=== PATIENT | female | born 1970 ===

== ENCOUNTER 2018-01-26 22:11 | Emergency (ER) | payer BC, OTHER ==
[2018-01-26 22:12] VITALS: BMI 35.3
[2018-01-26] MEDS ORDERED: Lidocaine 5% Patch TD ONE (23:10)
[2018-01-26] MEDS: Lidocaine 5% Patch TD STA (23:16)
--- NOTE | 2018-01-26 23:19 | ED PDOC ---
Upper Extremity Pain/Injury Time Seen by Provider: 01/26/18 22:31 Chief Complaint (Nursing): Upper Extremity Problem/Injury Chief Complaint (Provider): Upper Extremity Problem/Injury History Per: Patient History/Exam Limitations: no limitations Onset/Duration Of Symptoms: Days (x 1) Current Symptoms Are (Timing): Still Present Quality: "Pain" Exacerbating Factor(s): Movement Additional Complaint(s): 47 year old female with a history of high cholesterol, DM, chronic back pain and a herniated disc in her neck, presents to the ED complaining of left shoulder pain since this morning. Patient reports waking up with pain that is localized at the lateral shoulder and radiates to right above her elbow. It is worse with any movement of her upper arm and forearm. 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 She admits to taking Oxycodone for her back pain regularly as well as taking a muscle relaxant with no relief of current symptoms. Denies numbness, tingling, weakness , trauma and injury. PMD: Dr. Raven Buck MD Past Medical History Reviewed: Historical Data, Nursing Documentation, Vital Signs Vital Signs: Last Vital Signs Temp 97.1 F L 01/26/18 22:21 Pulse 96 H 01/26/18 22:21 Resp 18 01/26/18 22:21 BP 144/90 01/26/18 22:21 Pulse Ox 100 01/26/18 22:21 - Medical History PMH: Anxiety, Back Problems, Diabetes, Gastritis (Takes zantac prn), Sleep Apnea (uses cpap with oxygen at night) - Surgical History Surgical History: Cholecystectomy, Tonsillectomy Other surgeries: total hysterectomy - Family History Family History: States: Diabetes, Hypertension - Social History Current smoker - smoking cessation education provided: Yes Alcohol: None Drugs: Denies - Immunization History Hx Tetanus Toxoid Vaccination: No Hx Influenza Vaccination: No Hx Pneumococcal Vaccination: No - Home Medications Home Medications: Ambulatory Orders Medication Instructions Recorded Motrin 600 mg PO Q8 07/30/14 Percocet 325 mg-5 mg 1 tab PO Q4 07/30/14 Enoxaparin [Lovenox] 40 mg SC DAILY #0 syr 08/02/14 Famotidine [Pepcid] 20 mg PO BID #0 tab 08/02/14 Moxifloxacin [Avelox] 400 mg PO DAILY #5 tab 08/02/14 Oxycodone HCl/Acetaminophen 1 tab PO Q6 PRN #12 tab 08/27/15 [Percocet 325 mg-5 mg] Amoxicillin 500 mg PO BID #14 cap 04/13/16 Naproxen 500 mg PO BID #30 tab 01/27/18 - Allergies Allergies/Adverse Reactions: Allergies Allergy/AdvReac Type Severity Reaction Status Date / Time Iodinated Contrast- Oral and Allergy RASH Verified 04/13/16 16:25 IV Dye [Iodinated Contrast Media - IV Dye] Review of Systems ROS Statement: Except As Marked, All Systems Reviewed And Found Negative Musculoskeletal: Positive for: Neck Pain (chronic), Shoulder Pain (left; radiates down to elbow), Back Pain (chronic) Physical Exam - Reviewed Nursing Documentation Reviewed: Yes Vital Signs Reviewed: Yes - Physical Exam Appears: Positive for: Uncomfortable, In Acute Distress (painful) Head Exam: Positive for: ATRAUMATIC, NORMOCEPHALIC Skin: Positive for: Warm (dark red lesions to lateral shoulder she reports is from chronic acne), Dry Eye Exam: Positive for: Normal appearance, EOMI, PERRL Extremity: Positive for: Tenderness (to palpation in lateral left upper arm with some spasm at deltoid), Capillary Refill (<2 in fingers), Other (left shoulder is held in adduction and internal rotation;5/5 strength in all nerve distribution of left hand; 5/5 strength in wrist flexion and extension; Light touch is intact; Strong radial pulse). Negative for: Normal ROM ((+) Passive and active ROM at elbow and shoulder elicits exquisite pain), Deformity, Swelling - ECG O2 Sat by Pulse Oximetry: 100 (RA) Pulse Ox Interpretation: Normal Medical Decision Making Medical Decision Making: Time: 22:31 Impression: shoulder pain Differential diagnoses include but are not limited to: shoulder tendonitis, rotator cuff injury, shoulder sprain, arthritis, degenerative joint disease Initial Plan: --Lidocaine 5% 1 ea TD --Toradol 30 mg IM --Tylenol 975 mg PO --Valium 5 mg PO --Left shoulder x-ray Time: 2356 --Pt continues to have exquisite pain despite medications. LEFT shoulder xray: questionable fracture, poor views due to patient's inability to tolerate movement to provide appropriate views Upper extremity CT and IM Morphine ordered. Transfer of care to Dr Ellsworth pending CT to r/o fx. Scribe Attestation: Documented by Ebony Pierre, acting as a scribe for Sarah Yadav MD Provider Scribe Attestation: All medical record entries made by the Scribe were at my direction and personally dictated by me. I have reviewed the chart and agree that the record accurately reflects my personal performance of the history, physical exam, medical decision making, and the department course for this patient. I have also personally directed, reviewed, and agree with the discharge instructions and disposition. Disposition - Clinical Impression Clinical Impression: Shoulder pain, acute - Patient ED Disposition Is Patient to be Admitted: Transfer of Care - Disposition Disposition: Transfer of Care Disposition Time: 00:00 Condition: FAIR Prescriptions: Naproxen 500 mg PO BID #30 tab Patient Signed Over To: Zee Ellsworth Handoff Comments: pending CT
--- NOTE | 2018-01-27 00:20 | ED PDOC ---
- ECG O2 Sat by Pulse Oximetry: 100 (RA) Pulse Ox Interpretation: Normal - Progress Re-evaluation Time: :25 Condition: Re-examined, Improved Medical Decision Making Medical Decision Making: Time: 00:00 --transfer of care endorsed to me pending CT of upper extremity. Time: 00:55 CT FINDINGS: Bones/joints: Small bone fragment along the posterior rim of the left glenoid concerning for an acute fracture. No dislocation. Soft tissues: Unremarkable. IMPRESSION: Small bone fragment along the posterior rim of the left glenoid concerning for an acute fracture. Scribe Attestation: Documented by Ebony Pierre, acting as a scribe for Zee Ellsworth MD Provider Scribe Attestation: All medical record entries made by the Scribe were at my direction and personally dictated by me. I have reviewed the chart and agree that the record accurately reflects my personal performance of the history, physical exam, medical decision making, and the department course for this patient. I have also personally directed, reviewed, and agree with the discharge instructions and disposition. Disposition Doctor Will See Patient In The: Office Counseled Patient/Family Regarding: Studies Performed, Diagnosis, Need For Followup - Clinical Impression Clinical Impression: Shoulder pain, acute, Glenoid labrum tear - POA Present On Arrival: None - Disposition Referrals: Mino Martinez III, MD [Staff Provider] - Disposition: Routine/Home Disposition Time: :25 Condition: GOOD Additional Instructions: Take your medications as instructed. Follow up with your PCP, pain management, and orthopedist in 2-3 days. Instructions: Shoulder Labral Tear (DC)
[2018-01-27 02:23] VITALS: BP 123/78; PULSE 82; RESP 16; TEMP 98
--- NOTE | 2018-01-27 07:54 | RAD ---
PROCEDURE: Radiographs of the Left Shoulder HISTORY: LEFT shoulder pain COMPARISON: No prior. FINDINGS: BONES: Normal. No fractureMacro rad bone. JOINTS: Normal. Glenohumeral and acromioclavicular joints preserved. No osteoarthritis. SOFT TISSUES: Questionable soft tissue lesion overlying the deltoid region. OTHER FINDINGS: None. IMPRESSION: No acute fracture dislocation appreciated. Questionable soft tissue lesion overlying the deltoid region. Clinically correlate further.
--- NOTE | 2018-01-27 09:00 | CT ---
PROCEDURE: CT LEFT SHOULDER WITHOUT CONTRAST HISTORY: LEFT shoulder r/o fracture COMPARISON: Left shoulder radiographs 01/26/2018. TECHNIQUE: A volumetric CT acquisition was performed through the left shoulder without intravenous contrast as requested. Reformatted datasets provided using multiple algorithms in sagittal, coronal and axial planes. FINDINGS: A chip or avulsion fracture is suspected posterior to the glenoid rim potentially reflecting a type of [place] lesion. No subluxation or dislocation. No humeral fractures appreciated with the acromioclavicular joint and acromion appearing intact overall. The scapula is otherwise unremarkable swells local soft tissues. Incidental capture through left lung apex is unremarkable as well. The visualized upper left ribs appear intact as well. IMPRESSION: Chip or avulsion fracture at the posterior rim of the glenoid process is in question versus heterotopic calcification. The former is favored. MRI may be useful for further characterization. No subluxation or dislocation. No left humeral head fracture appreciated.
[2018-01-29 15:28] VITALS: O2SAT 100
== END 2018-01-27 01:45 | disposition home or self-care (01) ==
LOC: SUPCPDRO 22:11 → H.ER 22:11
DX: S43.432A Superior glenoid labrum lesion of left shoulder, initial encounter (principal); X50.9XXA Other and unspecified overexertion or strenuous movements or postures, initial encounter; Y92.89 Other specified places as the place of occurrence of the external cause; E11.9 Type 2 diabetes mellitus without complications; F41.9 Anxiety disorder, unspecified
CPT/HCPCS: 73030; 73200; 96372; 99285; J1885; J2270

== ENCOUNTER 2018-07-13 23:41 | Observation (INO) | payer BC, OTHER ==
[2018-07-13 23:41] VITALS: BMI 35.3
[2018-07-14 01:00] LABS: BASO % 0.3 % (0.0-2.0); EOS # 0.1 K/uL (0.0-0.7); EOS % 1.1 % (0.0-4.0); HEMOGLOBIN 13.1 g/dL (12.0-16.0); LYMPH % 28.6 % (20.0-40.0); MEAN CELL VOLUME 88.8 fl (81.0-99.0); MEAN CORPUSCULAR HEMOGLOBIN 29.7 pg (27.0-31.0); MEAN CORPUSCULAR HGB CONC 33.5 g/dL (33.0-37.0); MEAN PLATELET VOLUME 10.3 fl (7.2-11.7); MONO # 0.9 K/uL (0.0-0.8); MONO % 8.5 % (0.0-10.0); NEUT # 6.4 K/uL (1.8-7.0); NEUT % 61.5 % (50.0-75.0); NRBC % 0.2 % (0.0-0.0); RBC 4.39 Mil/uL (3.80-5.20); RED CELL DISTRIBUTION WIDTH 14.7 % (11.5-14.5); WHITE BLOOD COUNT 10.4 K/uL (4.8-10.8)
[2018-07-14 01:02] LABS: PROTHROMBIN TIME 10.6 Seconds (9.8-13.1)
[2018-07-14 01:05] LABS: PARTIAL THROMBOPLASTIN TIME 33.3 Seconds (25.6-37.1)
[2018-07-14 01:06] LABS: BLOOD UREA NITROGEN 15 mg/dl (7-17); CALCIUM 9.6 mg/dL (8.4-10.2); GFR NON-AFRICAN AMERICAN > 60
--- NOTE | 2018-07-14 03:04 | ED PDOC ---
HPI: Chest Pain Time Seen by Provider: 07/14/18 00:00 Chief Complaint (Nursing): Chest Pain History Per: Patient History/Exam Limitations: no limitations Quality: Pressure Additional Complaint(s): Hx of DM presenting with chest pain since yesterday, occurs at rest, radiates to L arm, not associated with shortness of breath, sweats. Denies cough, fever. No leg swelling. States she cannot take ASA because she is having surgery on her back on Thursday. Past Medical History Reviewed: Historical Data, Nursing Documentation, Vital Signs Vital Signs: Last Vital Signs Temp 97.9 F 07/13/18 23:50 Pulse 98 H 07/13/18 23:50 Resp 16 07/13/18 23:50 BP 132/85 07/13/18 23:50 Pulse Ox 97 07/13/18 23:50 - Medical History PMH: Anxiety, Asthma, Back Problems, Diabetes, Gastritis (Takes zantac prn), Gall Bladder Disease, Hypercholesterolemia, Sleep Apnea (uses cpap with oxygen at night) - Surgical History Surgical History: Cholecystectomy, Tonsillectomy - Family History Family History: States: Diabetes, Hypertension - Immunization History Hx Tetanus Toxoid Vaccination: No Hx Influenza Vaccination: No Hx Pneumococcal Vaccination: No - Home Medications Home Medications: Ambulatory Orders Medication Instructions Recorded Gabapentin [Neurontin] 300 mg PO BID 07/14/18 Metformin HCl [Glucophage] 1,000 mg PO DAILY 07/14/18 Montelukast [Singulair] 10 mg PO DAILY 07/14/18 Naproxen [Naprosyn] 500 mg PO BID 07/14/18 busPIRone [Buspar] 10 mg PO BID 07/14/18 - Allergies Allergies/Adverse Reactions: Allergies Allergy/AdvReac Type Severity Reaction Status Date / Time Iodinated Contrast- Oral and Allergy RASH Verified 07/13/18 23:50 IV Dye [Iodinated Contrast Media - IV Dye] Review of Systems ROS Statement: Except As Marked, All Systems Reviewed And Found Negative Cardiovascular: Positive for: Chest Pain Physical Exam - Reviewed Nursing Documentation Reviewed: Yes Vital Signs Reviewed: Yes - Physical Exam Appears: Positive for: Well, Non-toxic, No Acute Distress Head Exam: Positive for: ATRAUMATIC, NORMAL INSPECTION, NORMOCEPHALIC Skin: Positive for: Normal Color, Warm, DRY Eye Exam: Positive for: EOMI, Normal appearance, PERRL ENT: Positive for: Normal ENT Inspection Neck: Positive for: Normal, Painless ROM Cardiovascular/Chest: Positive for: Regular Rate, Rhythm Respiratory: Positive for: CNT, Normal Breath Sounds Gastrointestinal/Abdominal: Positive for: Normal Exam, Soft. Negative for: Tenderness Back: Positive for: Normal Inspection Extremity: Positive for: Normal ROM Neurologic/Psych: Positive for: Alert, Oriented - Laboratory Results Result Diagrams: 07/14/18 00:21 07/14/18 00:21 - ECG ECG Rhythm: Positive for: Normal QRS, Normal ST Segment, Nonspecific Changes Interpretation Of Abn EKG: Q waves Rate: 79 O2 Sat by Pulse Oximetry: 97 Pulse Ox Interpretation: Normal Medical Decision Making Medical Decision MakinAM Patient with DM presenting with atypical chest pain --Comfortable appearance, stable vitals, nonfocal exam --Nonspecific changes on EKG --Will get labs, EKG, CXR --Concerned for possible ACS 300AM --Workup negative --Will place in OBS Tele for serial troponins and cardiac monitoring given age and risk factors Disposition - Clinical Impression Clinical Impression: Atypical chest pain - Disposition Disposition Time: 03:00 Condition: FAIR
[2018-07-14] MEDS ORDERED: Nitroglycerin 2% 15 INCH/30 GM TUBE TOP STA (03:14)
[2018-07-14] MEDS ORDERED: Nitroglycerin 2% Ointment Foilpak UD TOP ONE (03:16)
[2018-07-14] MEDS ORDERED: Nitroglycerin 2% Ointment Foilpak UD TOP STA (03:23)
--- NOTE | 2018-07-14 06:37 | CARD ---
APPROVED REPORT Date of service: 07/13/2018 EKG Measurement Heart [id number] <Conclusion> Normal sinus rhythm Normal Electrocardiogram
--- NOTE | 2018-07-14 08:22 | RAD ---
Date of service: 07/14/2018 HISTORY: cp COMPARISON: No prior. TECHNIQUE: Chest PA and lateral FINDINGS: LUNGS: Low-normal lung volumes. No consolidation or mass appreciated. PLEURA: No significant pleural effusion identified. No pneumothorax apparent. CARDIOVASCULAR: Probable mild cardiomegaly. Suspect mild pulmonary venous congestion OSSEOUS STRUCTURES: No significant abnormalities. VISUALIZED UPPER ABDOMEN: Normal. OTHER FINDINGS: Asymmetrically elevated right hemidiaphragm IMPRESSION: Mild cardiomegaly with mild pulmonary venous congestion
[2018-07-14] MEDS: Naproxen 500 MG TAB PO SCH ×2 (08:56→16:36)
[2018-07-14 09:12] LABS: HDL CHOLESTEROL 43 MG/DL (30-70)
[2018-07-14 09:24] LABS: LDL CHOLESTEROL 158 mg/dL (0-129)
--- NOTE | 2018-07-14 13:21 | CP.PCM.HP ---
History of Present Illness - History of Present Illness History of Present Illness: 48 yo female patient with PMHx of DM present to the ED c/o chest pain x2 today, patient describes pain occurs at rest, radiates to L arm, 6/10, not associated with shortness of breath or palpitations. She denies cough, fever/nausea/vo miting, orthopnea, diaphoresis. No leg swelling. No previous episodes. States she is having surgery on her back on Thursday. PMH: Anxiety, Asthma, Back Problems, Diabetes, Gastritis, Hypercholesterolemia, Sleep Apnea PSH: cholecystectomy, tonsilectomy Meds: see bellow FMH: DM and HTN in parents Allergies: Iodine SH: negtaive foe tobacco, etoh or ilict drugs use Present on Admission - Present on Admission Any Indicators Present on Admission: No Review of Systems - Review of Systems All systems: reviewed and no additional remarkable complaints except (HPI) Past Patient History - Infectious Disease Hx of Infectious Diseases: None - Past Medical History & Family History Past Medical History?: Yes - Past Social History Smoking Status: Current Some Days Smoker - CARDIAC Hx Hypercholesterolemia: Yes - PULMONARY Hx Asthma: Yes Hx Sleep Apnea: Yes (uses cpap with oxygen at night) - NEUROLOGICAL Hx Neurological Disorder: No - HEENT Other/Comment: wear reading eyeglasses - RENAL Hx Chronic Kidney Disease: No - ENDOCRINE/METABOLIC Hx Endocrine Disorders: Yes Hx Diabetes Mellitus Type 2: Yes - HEMATOLOGICAL/ONCOLOGICAL Hx Blood Disorders: No Hx AIDS: No Hx Human Immunodeficiency Virus (HIV): No - INTEGUMENTARY Hx Dermatological Problems: No - MUSCULOSKELETAL/RHEUMATOLOGICAL Hx Back Pain: Yes Hx Falls: Yes Hx Herniated Disk: Yes (Cervical and lumbar discs) - GASTROINTESTINAL Hx Gall Bladder Disease: Yes Hx Gastritis: Yes (Takes zantac prn) - GENITOURINARY/GYNECOLOGICAL Hx Genitourinary Disorders: Yes Hx Reproductive Disorders: Yes (heavy vaginal bleeding) - PSYCHIATRIC Hx Anxiety: Yes Hx Substance Use: No - SURGICAL HISTORY Hx Surgeries: Yes Hx Cholecystectomy: Yes Hx Hysterectomy: Yes Hx Tonsillectomy: Yes - ANESTHESIA Hx Anesthesia: Yes Hx Anesthesia Reactions: No Hx Malignant Hyperthermia: No Meds Allergies/Adverse Reactions: Allergies Allergy/AdvReac Type Severity Reaction Status Date / Time Iodinated Contrast- Oral and Allergy RASH Verified 07/13/18 23:50 IV Dye [Iodinated Contrast Media - IV Dye] Physical Exam - Constitutional Appears: No Acute Distress - Head Exam Head Exam: NORMAL INSPECTION - Eye Exam Eye Exam: EOMI, PERRL - Respiratory Exam Respiratory Exam: Clear to Auscultation Bilateral - Cardiovascular Exam Cardiovascular Exam: REGULAR RHYTHM, +S1, +S2. absent: Tachycardia - GI/Abdominal Exam GI & Abdominal Exam: Soft. absent: Distended, Tenderness - Extremities Exam Extremities exam: Negative for: calf tenderness, pedal edema - Neurological Exam Neurological exam: Alert, CN II-XII Intact, Oriented x3 - Skin Skin Exam: Dry, Warm Results - Vital Signs Recent Vital Signs: Last Vital Signs Temp 97.6 F 07/14/18 12:47 Pulse 70 07/14/18 12:47 Resp 18 07/14/18 12:47 BP 99/65 L 07/14/18 12:47 Pulse Ox 99 07/14/18 12:47 - Labs Result Diagrams: 07/14/18 00:21 07/14/18 00:21 Labs: Laboratory Results - last 24 hr 07/14/18 07/14/18 07/14/18 00:21 00:21 00:21 WBC 10.4 RBC 4.39 Hgb 13.1 Hct 39.0 MCV 88.8 MCH 29.7 MCHC 33.5 RDW 14.7 H Plt Count 205 MPV 10.3 Neut % (Auto) 61.5 Lymph % (Auto) 28.6 [place] % (Auto) 8.5 Eos % (Auto) 1.1 Baso % (Auto) 0.3 Neut # (Auto) 6.4 Lymph # (Auto) 3.0 [place] # (Auto) 0.9 H Eos # (Auto) 0.1 Baso # (Auto) 0.0 PT 10.6 INR 1.0 APTT 33.3 Sodium 141 Potassium 3.6 Chloride 103 Carbon Dioxide 28 Anion Gap 14 BUN 15 Creatinine 0.7 Est GFR ( Amer) > 60 Est GFR (Non-Af Amer) > 60 POC Glucose (mg/dL) Random Glucose 111 H Calcium 9.6 Troponin I < 0.0120 Triglycerides Cholesterol LDL Cholesterol Direct HDL Cholesterol 07/14/18 07/14/18 07/14/18 01:51 04:56 08:17 WBC RBC Hgb Hct MCV MCH MCHC RDW Plt Count MPV Neut % (Auto) Lymph % (Auto) [place] % (Auto) Eos % (Auto) Baso % (Auto) Neut # (Auto) Lymph # (Auto) [place] # (Auto) Eos # (Auto) Baso # (Auto) PT INR APTT Sodium Potassium Chloride Carbon Dioxide Anion Gap BUN Creatinine Est GFR ( Amer) Est GFR (Non-Af Amer) POC Glucose (mg/dL) 103 107 Random Glucose Calcium Troponin I < 0.0120 Triglycerides 79 Cholesterol 218 H LDL Cholesterol Direct 158 H HDL Cholesterol 43 07/14/18 11:22 WBC RBC Hgb Hct MCV MCH MCHC RDW Plt Count MPV Neut % (Auto) Lymph % (Auto) [place] % (Auto) Eos % (Auto) Baso % (Auto) Neut # (Auto) Lymph # (Auto) [place] # (Auto) Eos # (Auto) Baso # (Auto) PT INR APTT Sodium Potassium Chloride Carbon Dioxide Anion Gap BUN Creatinine Est GFR ( Amer) Est GFR (Non-Af Amer) POC Glucose (mg/dL) 120 H Random Glucose Calcium Troponin I Triglycerides Cholesterol LDL Cholesterol Direct HDL Cholesterol Assessment & Plan - Assessment and Plan (Free Text) Assessment: 48 yo female patient with PMHx of DM, HLD, anxiety and gastritis admitted for atypical chest pain r/o ACS vs MSK Plan: - Comfortable appearance, stable vitals - Nonspecific changes on EKG - troponins x3 negative - Hold ASA pt getting back surgery on Thursday - rest workup wnl - pending echo - CXR no active lung disease - continue home meds - will monitor Case seen and examined with Dr Blakely
[2018-07-14 20:38] VITALS: RESP 18
--- NOTE | 2018-07-14 20:50 | CARD ---
APPROVED REPORT Date of service: 07/14/2018 EXAM: Two-dimensional and M-mode echocardiogram with Doppler and color Doppler. Other Information Quality : GoodRhythm : NSR INDICATION Chest Pain 2D DIMENSIONS IVSd0.84 (0.7-1.1cm)LVDd4.35 (3.9-5.9cm) LVOT Diameter1.64 (1.8-2.4cm)PWd1.08 (0.7-1.1cm) IVSs1.38 (0.8-1.2cm)LVDs2.89 (2.5-4.0cm) FS (%) 33.7 %PWs1.50 (0.8-1.2cm) M-Mode DIMENSIONS Left Atrium (MM)3.86 (2.5-4.0cm)IVSd1.11 (0.7-1.1cm) Aortic Root2.52 (2.2-3.7cm)LVDd4.66 (4.0-5.6cm) Aortic Cusp Exc.1.75 (1.5-2.0cm)PWd0.88 (0.7-1.1cm) IVSs1.29 cmFS (%) 36 % LVDs2.96 (2.0-3.8cm)PWs1.39 cm Aortic Valve AoV Peak Jqlcmics960.1cm/sAoV VTI29.8cmAO Peak GR.9mmHg LVOT Peak Jkhrlzxw91.1cm/sLVOT VTI16.07cmAO Mean GR.5mmHg MARLENA (VMAX)0.22tx4NNB (VTI)0.63cm2 Mitral Valve MV E Xalwlwkq11.8cm/sMV DECEL [id number] A Dhgfljev62.1cm/s MV WEP39vhR/A ratio1.2MVA (PHT)4.47cm2 TDI Lateral E' Peak V10.67cm/sMedial E' Peak V9.04cm/sE/Lateral E'7.6 E/Medial E'8.9 LEFT VENTRICLE The left ventricle is normal size. There is normal left ventricular wall thickness. The left ventricular systolic function is normal. The estimated ejection fraction is 55-60% No regional wall motion abnormalities noted.. The left ventricular diastolic function is normal. No left ventricle thrombus noted on this study. There is no ventricular septal defect visualized. There is no left ventricular aneurysm. There is no mass noted in the left ventricle. RIGHT VENTRICLE The right ventricle is normal size. There is normal right ventricular wall thickness. The right ventricular systolic function is normal. ATRIA The left atrium size is normal. The right atrium size is normal. The interatrial septum is intact with no evidence for an atrial septal defect. AORTIC VALVE The aortic valve is normal in structure. No aortic regurgitation is present. There is no aortic valvular stenosis. There is no aortic valvular vegetation. MITRAL VALVE The mitral valve is normal in structure. There is no evidence of mitral valve prolapse. There is no mitral valve stenosis. There is no mitral valve regurgitation noted. TRICUSPID VALVE The tricuspid valve is normal in structure. There is trivial tricuspid valve regurgitation noted. There is no tricuspid valve prolapse or vegetation. There is no tricuspid valve stenosis. PULMONIC VALVE The pulmonary valve is normal in structure. There is no pulmonic valvular regurgitation. There is no pulmonic valvular stenosis. GREAT VESSELS The aortic root is normal in size. The ascending aorta is normal in size. The pulmonary artery is normal. The IVC is normal in size and collapses >50% with inspiration. PERICARDIAL EFFUSION There is no pericardial effusion. There is no pleural effusion. <Conclusion> The estimated ejection fraction is 55-60% The left ventricular diastolic function is normal. The left atrium size is normal. There is trivial tricuspid valve regurgitation noted.
[2018-07-15 05:43] LABS: MEAN CELL VOLUME 90.4 fl (81.0-99.0); MEAN CORPUSCULAR HEMOGLOBIN 29.7 pg (27.0-31.0); MEAN CORPUSCULAR HGB CONC 32.9 g/dL (33.0-37.0); RBC 4.37 Mil/uL (3.80-5.20); RED CELL DISTRIBUTION WIDTH 14.8 % (11.5-14.5); WHITE BLOOD COUNT 7.1 K/uL (4.8-10.8)
[2018-07-15 06:04] LABS: BLOOD UREA NITROGEN 14 mg/dl (7-17); CALCIUM 9.4 mg/dL (8.4-10.2); GFR NON-AFRICAN AMERICAN > 60
[2018-07-15] MEDS: Naproxen 500 MG TAB PO SCH (08:53)
[2018-07-15 11:55] VITALS: BP 99/68; PULSE 71; TEMP 97.8; O2SAT 100
--- NOTE | 2018-07-15 12:40 | CP.PCM.DIS ---
Provider - Provider Date of Admission: 07/14/18 03:01 Attending physician: Kal Clemons MD Time Spent in preparation of Discharge (in minutes): 30 Diagnosis - Discharge Diagnosis (1) Atypical chest pain Status: Acute (2) Costochondritis, acute Status: Acute Hospital Course - Lab Results Lab Results: Most Recent Lab Values WBC 7.1 K/uL (4.8-10.8) 07/15/18 05:32 RBC 4.37 Mil/uL (3.80-5.20) 07/15/18 05:32 Hgb 13.0 g/dL (12.0-16.0) 07/15/18 05:32 Hct 39.6 % (34.0-47.0) 07/15/18 05:32 MCV 90.4 fl (81.0-99.0) 07/15/18 05:32 MCH 29.7 pg (27.0-31.0) 07/15/18 05:32 MCHC 32.9 g/dL (33.0-37.0) L 07/15/18 05:32 RDW 14.8 % (11.5-14.5) H 07/15/18 05:32 Plt Count 201 K/uL (130-400) 07/15/18 05:32 MPV 10.3 fl (7.2-11.7) 07/14/18 00:21 Neut % (Auto) 61.5 % (50.0-75.0) 07/14/18 00:21 Lymph % (Auto) 28.6 % (20.0-40.0) 07/14/18 00:21 Rolette % (Auto) 8.5 % (0.0-10.0) 07/14/18 00:21 Eos % (Auto) 1.1 % (0.0-4.0) 07/14/18 00:21 Baso % (Auto) 0.3 % (0.0-2.0) 07/14/18 00:21 Neut # (Auto) 6.4 K/uL (1.8-7.0) 07/14/18 00:21 Lymph # (Auto) 3.0 K/uL (1.0-4.3) 07/14/18 00:21 Rolette # (Auto) 0.9 K/uL (0.0-0.8) H 07/14/18 00:21 Eos # (Auto) 0.1 K/uL (0.0-0.7) 07/14/18 00:21 Baso # (Auto) 0.0 K/uL (0.0-0.2) 07/14/18 00:21 PT 10.6 Seconds (9.8-13.1) 07/14/18 00:21 INR 1.0 07/14/18 00:21 APTT 33.3 Seconds (25.6-37.1) 07/14/18 00:21 Sodium 142 mmol/l (132-148) 07/15/18 05:32 Potassium 4.2 MMOL/L (3.6-5.0) 07/15/18 05:32 Chloride 104 mmol/L (98-107) 07/15/18 05:32 Carbon Dioxide 32 mmol/L (22-30) H 07/15/18 05:32 Anion Gap 10 (10-20) 07/15/18 05:32 BUN 14 mg/dl (7-17) 07/15/18 05:32 Creatinine 0.7 mg/dl (0.7-1.2) 07/15/18 05:32 Est GFR ( Amer) > 60 07/15/18 05:32 Est GFR (Non-Af Amer) > 60 07/15/18 05:32 POC Glucose (mg/dL) 150 mg/dL (65-110) H 07/15/18 11:31 Random Glucose 116 mg/dL (65-105) H 07/15/18 05:32 Calcium 9.4 mg/dL (8.4-10.2) 07/15/18 05:32 Troponin I < 0.0120 ng/mL (0.00-0.120) 07/14/18 16:05 Triglycerides 79 mg/DL (0-149) 07/14/18 08:17 Cholesterol 218 mg/dL (0-199) H 07/14/18 08:17 LDL Cholesterol Direct 158 mg/dL (0-129) H 07/14/18 08:17 HDL Cholesterol 43 MG/DL (30-70) 07/14/18 08:17 - Hospital Course Hospital Course: 48 yo female patient with PMHx of DM admitted with chest pain x 2 days. No previous episodes. ACS r/o. Most likely MSK in nature. Nonspecific changes on EKG. troponins x3 negative. Echo wnl. patient stable for discharge. Instructions to f/u with PMD next week. Discharge Exam - Head Exam Head Exam: NORMAL INSPECTION - Respiratory Exam Respiratory Exam: Clear to PA & Lateral - Cardiovascular Exam Cardiovascular Exam: REGULAR RHYTHM, +S1, +S2 - GI/Abdominal Exam GI & Abdominal Exam: Normal Bowel Sounds, Soft. absent: Distended, Tenderness - Extremities Exam Extremities exam: normal inspection - Neurological Exam Neurological exam: Alert, CN II-XII Intact, Oriented x3 - Skin Skin Exam: Dry, Warm Discharge Plan - Discharge Medications Prescriptions: Acetaminophen [Tylenol 325mg tab] 325 mg PO Q8 #30 tab - Follow Up Plan Condition: FAIR Disposition: HOME/ ROUTINE Instructions: Chest Pain That Is Not Caused by the Heart (DC) Additional Instructions: follow up with pmd in 1 week Referrals: Fay Ascencio MD [Medical Doctor] - Dave Blakely MD [Medical Doctor] -
== END 2018-07-15 13:20 | disposition home or self-care (01) ==
LOC: H.ER 23:41 → H.ERHOLD 07-14 03:01 → H.TEL 07-14 03:53
PROVIDERS: ADMIT Family Medicine; ATTEND Family Medicine
DX: R07.89 Other chest pain (principal); E11.9 Type 2 diabetes mellitus without complications; K29.70 Gastritis, unspecified, without bleeding; E78.00 Pure hypercholesterolemia, unspecified; G47.30 Sleep apnea, unspecified; E78.5 Hyperlipidemia, unspecified; F41.9 Anxiety disorder, unspecified; J45.909 Unspecified asthma, uncomplicated; Z91.041 Radiographic dye allergy status; F17.200 Nicotine dependence, unspecified, uncomplicated
CPT/HCPCS: 36415; 71046; 80048; 80061; 82948; 84484; 85025; 85027; 85610; 85730; 93005; 93306; 96374; 99285; G0378; J1885

== ENCOUNTER 2019-01-20 21:17 | Emergency (ER) | payer BC, OTHER ==
[2019-01-20 21:17] VITALS: BMI 35.3
--- NOTE | 2019-01-20 21:47 | ED PDOC ---
HPI: General Adult Time Seen by Provider: 01/20/19 21:33 Chief Complaint (Nursing): Shortness Of Breath Chief Complaint (Provider): "i feel my neck collapsing" History Per: Patient History/Exam Limitations: no limitations Onset/Duration Of Symptoms: Sudden Onset Current Symptoms Are (Timing): Better Severity: Moderate Additional Complaint(s): 48yo female c/o "my neck collapsed again"- states was relaxing watching TV when she felt like the L side of her neck "collapsed" and she had trouble breathing. Per family member was conscious through it, and talking, no drooling, was tolerating secretions. Has happened intermittently over several months, saw pulmonary Dr Howard and given symbicort and albuterol told "asthma" and "you have a muscle that causes this"- unclear specifics of history. Denies preceding food, new medications, or other known triggers. Happens sitting up or lying down. Past Medical History Reviewed: Historical Data, Nursing Documentation, Vital Signs Vital Signs: Last Vital Signs Temp 98.5 F 01/20/19 21:20 Pulse 101 H 01/20/19 21:20 Resp 18 01/20/19 21:20 BP 147/89 01/20/19 21:20 Pulse Ox 99 01/20/19 21:20 - Medical History PMH: Anxiety, Asthma, Back Problems, Diabetes, Gastritis (Takes zantac prn), Gall Bladder Disease, Hypercholesterolemia, Sleep Apnea (uses cpap with oxygen at night), Chronic Pain Denies: HIV, Chronic Kidney Disease - Surgical History Surgical History: Cholecystectomy, Tonsillectomy Other surgeries: spinal stimulator - Family History Family History: States: Diabetes, Hypertension - Living Arrangements Living Arrangements: With Family - Social History Current smoker - smoking cessation education provided: Yes - Immunization History Hx Tetanus Toxoid Vaccination: No Hx Influenza Vaccination: No Hx Pneumococcal Vaccination: No - Home Medications Home Medications: Ambulatory Orders Medication Instructions Recorded Gabapentin [Neurontin] 300 mg PO BID 07/14/18 Metformin HCl [Glucophage] 1,000 mg PO DAILY 07/14/18 Montelukast [Singulair] 10 mg PO DAILY 07/14/18 busPIRone [Buspar] 10 mg PO BID 07/14/18 Acetaminophen [Tylenol 325mg tab] 325 mg PO Q8 #30 tab 07/16/18 - Allergies Allergies/Adverse Reactions: Allergies Allergy/AdvReac Type Severity Reaction Status Date / Time Iodinated Contrast- Oral and Allergy RASH Verified 01/20/19 21:20 IV Dye [Iodinated Contrast Media - IV Dye] Review of Systems ROS Statement: Except As Marked, All Systems Reviewed And Found Negative Constitutional: Negative for: Fever ENT: Positive for: Throat Swelling. Negative for: Ear Pain, Throat Pain Cardiovascular: Negative for: Chest Pain, Paroxysmal Noc. Dyspnea Genitourinary Female: Negative for: Dysuria Musculoskeletal: Negative for: Neck Pain Skin: Negative for: Rash Neurological: Negative for: Weakness Psych: Negative for: Anxiety Physical Exam - Reviewed Nursing Documentation Reviewed: Yes Vital Signs Reviewed: Yes - Physical Exam Appears: Positive for: Well, Non-toxic, No Acute Distress Head Exam: Positive for: ATRAUMATIC, NORMAL INSPECTION, NORMOCEPHALIC Skin: Positive for: Normal Color, Warm, DRY Eye Exam: Positive for: EOMI, Normal appearance, PERRL ENT: Positive for: Normal ENT Inspection, Other. Negative for: Pharyngeal Erythema, Tonsillar Exudate, Tonsillar Swelling Neck: Positive for: Normal (no stridor,+mild fullness thyroid b/l), Painless ROM. Negative for: Decreased ROM, Pain On Movement Of Neck Cardiovascular/Chest: Positive for: Regular Rate, Rhythm Respiratory: Positive for: CNT, Normal Breath Sounds Gastrointestinal/Abdominal: Positive for: Soft. Negative for: Tenderness, Guarding Back: Positive for: Normal Inspection Extremity: Positive for: Normal ROM Neurological/Psych: Positive for: Awake, Alert, Normal Tone - Laboratory Results Result Diagrams: 01/20/19 21:55 01/20/19 21:55 - ECG O2 Sat by Pulse Oximetry: 99 Medical Decision Making Medical Decision Making: unclear etiology of symptoms. SPO2 normal with normal appearing swallowing mechanics, gross neck exam and normal vocalization Denies ever having scope performed, will obtain CT neck given long smoking hx r/o laryngeal or neck mass or airway impingement labs reviewed and unremarkable EXAM: CT Neck without Intravenous Contrast. CLINICAL HISTORY: SENSATION AIRWAY CLOSING TECHNIQUE: Axial computed tomography images of the neck without intravenous contrast. Sagittal and coronal reformatted images were generated. 302.69 mGy-cm CONTRAST: Without COMPARISON: None provided. FINDINGS: PHARYNX: Unremarkable appearance of the nasopharynx, oropharyx, and hypopharynx. No pharyngeal mucosal based mass lesions. LARYNX: Normal appearance of the larynx. Unremarkable epiglottis. RETROPHARYNGEAL SPACE: The retropharyngeal soft tissues appear within normal limits. SALIVARY GLANDS: No salivary gland abnormality evident. Unremarkable appearance of the parotid, submandibular, and sublingual glands. LYMPH NODES: No significant lymphadenopathy. THYROID: The thyroid gland is unremarkable. No nodule is evident. BONES: No aggressive appearing osseous lesion. There is mild disc interspace narrowing seen at C5-6 compatible with mild degenerative disc disease. IMPRESSION: Essentially unremarkable CT neck with IV contrast. Electronically signed on Jan 20, 2019 11:17:52 PM EDT by: Goyo Arriaga M.D., M.B.A., Certified By [employer] Trained MRI and CT Specialist --------- patient comfortable appearing and asymptomatic in ED Explained CT and lab findings, needs followup pulm/ENT as symptoms intermittent and ongoing weeks. No airway or respiratory compromise either clinically or on imaging, and normal swallowing mechanics in ED. Disposition - Clinical Impression Clinical Impression: Shortness of breath - Patient ED Disposition Is Patient to be Admitted: No Counseled Patient/Family Regarding: Studies Performed, Diagnosis, Need For Followup - Disposition Disposition: Routine/Home Disposition Time: 23:43 Condition: STABLE Additional Instructions: Followup with pulmonary doctor and ENT for further testing to precise cause of symptoms. Return to ER for any worse or new symptoms. Instructions: Shortness of Breath (Dyspnea) (DC) Forms: [employer] (Icelandic)
[2019-01-20 22:12] LABS: BLOOD UREA NITROGEN 11 mg/dl (7-17); CALCIUM 10.5 mg/dL (8.4-10.2); GFR NON-AFRICAN AMERICAN > 60
[2019-01-20 22:19] LABS: BASO % 0.3 % (0.0-2.0); EOS % 0.5 % (0.0-4.0); HEMOGLOBIN 13.2 g/dL (12.0-16.0); LYMPH # 2.2 K/uL (1.0-4.3); LYMPH % 20.8 % (20.0-40.0); MEAN CELL VOLUME 87.8 fl (81.0-99.0); MEAN CORPUSCULAR HEMOGLOBIN 28.3 pg (27.0-31.0); MEAN CORPUSCULAR HGB CONC 32.2 g/dL (33.0-37.0); MEAN PLATELET VOLUME 9.9 fl (7.2-11.7); MONO % 9.3 % (0.0-10.0); NEUT # 7.2 K/uL (1.8-7.0); NEUT % 69.1 % (50.0-75.0); RBC 4.67 Mil/uL (3.80-5.20); RED CELL DISTRIBUTION WIDTH 16.5 % (11.5-14.5); WHITE BLOOD COUNT 10.5 K/uL (4.8-10.8)
[2019-01-21 00:03] VITALS: BP 133/76; PULSE 88; RESP 18; TEMP 98; O2SAT 98
--- NOTE | 2019-01-21 09:38 | CARD ---
APPROVED REPORT Date of service: 01/20/2019 EKG Measurement Heart [id number] OR [id number] <Conclusion> Sinus tachycardia Poor R wave progression in Precordial leads Abnormal ECG
--- NOTE | 2019-01-21 11:05 | CT ---
Date of service: 01/20/2019 PROCEDURE: CT NECK WITHOUT CONTRAST HISTORY: sensation airway closing COMPARISON: None available. TECHNIQUE: CT of the neck without intravenous contrast. Coronal and sagittal reformats generated. Radiation dose: Total exam DLP = 302.69 mGy-cm. This CT exam was performed using one or more of the following dose reduction techniques: Automated exposure control, adjustment of the mA and/or kV according to patient size, and/or use of iterative reconstruction technique. FINDINGS: The visualized aerated segments of the pharynx larynx and trachea appear widely patent without stenosis. NASOPHARYNX: Unremarkable. SUPRAHYOID NECK: Unremarkable oropharynx, oral cavity, parapharyngeal space and retropharyngeal space. INFRAHYOID NECK: Left piriformis sinus appears partially collapsed collapsed though no gross mass is appreciable associated in this unenhanced examination. Otherwise, unremarkable larynx, hypopharynx, and supraglottic space. Vocal cords intact. MASS: None. GLANDS: Parotid and submandibular glands unremarkable. Normal size thyroid gland, without nodule. LYMPH NODES: Otherwise shotty bilateral submandibular, submental and jugular digastric lymph nodes are demonstrated. No gross lymphadenopathy appreciable. CERVICAL SPINE: No fracture or focal lesion. Limited spondylosis isolated to C5-6 and C6-7 levels. OTHER FINDINGS: Thoracic inlet appears unremarkable as imaged IMPRESSION: Widely patent visualized aerated pharynx, larynx and trachea as discussed above. The left piriform sinus is partially collapsed with no definitive associated mass appreciable in this noncontrast neck CT. Shotty lymph nodes are identified in the supra and infrahyoid neck as per above. Preliminary report provided by Lynn, 01/20/2019, 11:17 p.m..
== END 2019-01-21 00:06 | disposition home or self-care (01) ==
LOC: H.ER 21:17
DX: R06.02 Shortness of breath (principal); E78.00 Pure hypercholesterolemia, unspecified; G89.29 Other chronic pain; Z87.19 Personal history of other diseases of the digestive system; Z88.8 Allergy status to other drugs, medicaments and biological substances